=== PATIENT | female | born 1940 | race Caucasian/White ===

== ENCOUNTER 2017-10-29 11:00 | Day surgery (SDC) | payer MEDICARE, OTHER ==
[~2017-10-29] VITALS: Ht 162.6 cm; Wt 100.0 kg
[2017-10-29] MEDS ORDERED: ZANTAC 150150 MG PO (11:48)
[2017-10-29] MEDS ORDERED: ZOCOR 20MG20 MG PO (11:48)
[2017-10-29] MEDS ORDERED: LOPRESSOR 550 MG/TAB PO (11:49)
[2017-10-29] MEDS ORDERED: ELIQUIS 5MG PO (11:49)
[2017-10-29] MEDS ORDERED: D3-5050000 IU PO (11:51)
[2017-10-29] MEDS ORDERED: MYCOSTATIN100000 U/1 TP (11:51)
[2017-10-29] MEDS ORDERED: ASPIRIN E.C. 8181 MG PO (11:52)
[2017-10-29] MEDS ORDERED: PROAIR HFA0.09 MG/AC IH (11:52)
[2017-10-29] MEDS ORDERED: FLOVENT 220MCG7.9 GM IH (11:53)
[2017-10-29] MEDS ORDERED: VALTREX 50500 MG/TAB PO (11:54)
[2017-10-29] MEDS ORDERED: ULTRAM 50MG TAB50 MG PO (11:54)
[2017-10-29] MEDS ORDERED: VOLTAREN GEL 1%1 TU TP (11:54)
[2017-10-29] MEDS ORDERED: GAVISCON F1 TAB.CHEW PO (11:55)
[2017-10-29 12:11] VITALS: BP 133/77; PULSE 61; TEMP 98.3
[2017-10-29 12:11] LABS: POTASSIUM 4.2 mmol/L (3.4-5.0)
[2017-10-29 12:12] LABS: INR 1.8 (0.8-3.0)
[2017-10-29 12:45] LABS: THYROID STIMULATING HORMONE 2.68 uIU/mL (0.465-4.680)
== END 2017-10-29 14:15 | disposition home or self-care (01) ==
LOC: COL.CAR 11:00
PROVIDERS: Internal Medicine Interventional Cardiology
DX: I48.0 Paroxysmal atrial fibrillation (principal); Z53.8 Procedure and treatment not carried out for other reasons; I10 Essential (primary) hypertension; Z86.73 Personal history of transient ischemic attack (TIA), and cerebral infarction without residual deficits; Z79.01 Long term (current) use of anticoagulants; Z79.82 Long term (current) use of aspirin; Z88.5 Allergy status to narcotic agent; Z88.0 Allergy status to penicillin; Z91.040 Latex allergy status; Z87.19 Personal history of other diseases of the digestive system

== ENCOUNTER 2018-04-11 11:50 | Day surgery (SDC) | payer MEDICARE, OTHER ==
[~2018-04-11] VITALS: Ht 162.7 cm; Wt 102.4 kg
[2018-04-11] VITALS (12 sets, daily range): BP systolic 135–162; BP diastolic 72–96; PULSE 56–62; TEMP 97.9
[~2018-04-11 11:50] MED LIST: ASPIRIN E.C. 8181 MG PO; D3-5050000 IU PO; ELIQUIS 5MG PO; FLOVENT 220MCG7.9 GM IH; GAVISCON F1 TAB.CHEW PO; LOPRESSOR 550 MG/TAB PO; MYCOSTATIN100000 U/1 TP; PROAIR HFA0.09 MG/AC IH; ULTRAM 50MG TAB50 MG PO; VALTREX 50500 MG/TAB PO; VOLTAREN GEL 1%1 TU TP; ZANTAC 150150 MG PO; ZOCOR 20MG20 MG PO
[2018-04-11 12:17] LABS: HEMATOCRIT 47.7 % (37.0-47.0); HEMOGLOBIN 15.7 g/dl (12.5-16.0); MEAN CELL VOLUME 88 fl (80.0-100.0); MEAN CORPUSCULAR HEMOGLOBIN 29 pg (27.0-31.0); MEAN CORPUSCULAR HGB CONC 33 g/dl (33.0-37.0); MEAN PLATELET VOLUME 10.2 fl (7.4-10.4); PLATELET COUNT 359 K/mm3 (130-400); RED BLOOD COUNT 5.42 M/mm3 (4.10-5.30); REDCELL DISTRIBUTION WIDTH-CV 13.9 % (11.5-14.5)
[2018-04-11 12:23] LABS: INR 1.1 (0.8-3.0); PROTHROMBIN TIME 12.7 SECONDS (9.7-12.8)
[2018-04-11 13:11] LABS: CALCIUM 9.3 mg/dL (8.4-10.2); CREATININE, serum 0.87 mg/dL (0.52-1.25)
== END 2018-04-11 16:50 | disposition home or self-care (01) ==
LOC: COL.CAR 11:50
PROVIDERS: Internal Medicine Cardiovascular Disease
DX: I25.10 Atherosclerotic heart disease of native coronary artery without angina pectoris (principal); I48.0 Paroxysmal atrial fibrillation; I47.1 Supraventricular tachycardia; R00.2 Palpitations; I10 Essential (primary) hypertension; R60.0 Localized edema; R53.83 Other fatigue; Z79.01 Long term (current) use of anticoagulants; Z79.82 Long term (current) use of aspirin; Z88.0 Allergy status to penicillin; Z88.5 Allergy status to narcotic agent; Z91.040 Latex allergy status; Z86.73 Personal history of transient ischemic attack (TIA), and cerebral infarction without residual deficits; Z82.49 Family history of ischemic heart disease and other diseases of the circulatory system; Z83.3 Family history of diabetes mellitus
CPT/HCPCS: C1769; C1887; C1894; J1644; J2250; J3010; Q9967

== ENCOUNTER 2022-05-01 12:22 | Day surgery (SDC) | payer MEDICARE, OTHER ==
[~2022-05-01] VITALS: Ht 162.8 cm; Wt 93.9 kg
[2022-05-01] MEDS ORDERED: NORVASC 5MG5 MG/TAB PO (13:06)
[2022-05-01] MEDS ORDERED: SYNTHROID0.05 MG/TA PO (13:08)
[2022-05-01] MEDS ORDERED: FERRO-TIME325 MG PO (13:10)
[2022-05-01] MEDS ORDERED: FARXIGA10 PO (13:10)
[2022-05-01] MEDS ORDERED: VITAMIN C500 MG PO (13:11)
[2022-05-01] MEDS ORDERED: FOLIC ACID0.4 MG PO (13:15)
[2022-05-01] MEDS ORDERED: VITAMIN D250 MCG PO (13:16)
[2022-05-01 13:22] VITALS: BP 108/78; PULSE 100; TEMP 98
[2022-05-01 13:44] LABS: POTASSIUM 3.7 mmol/L (3.5-4.5)
[2022-05-01 13:55] LABS: INR 3.1 (0.8-3.0); PROTHROMBIN TIME 35.7 SECONDS (9.7-12.8)
--- NOTE | 2022-05-01 14:03 | NUR ---
REPORT GIVEN TO EVGENY DANIELS.
--- NOTE | 2022-05-01 14:03 | NUR ---
REPORT GIVEN TO EVGENY DANIELS.
[2022-05-01 14:11] LABS: THYROID STIMULATING HORMONE 1.28 uIU/mL (0.350-4.940)
[2022-05-01 15:45] VITALS: BP 106/66; PULSE 83
[2022-05-01 16:00] VITALS: BP 108/70; PULSE 86
[2022-05-01 16:15] VITALS: BP 107/70; PULSE 83
[2022-05-01 16:30] VITALS: BP 100/65; PULSE 71
[2022-05-01 16:45] VITALS: BP 116/70; PULSE 80
--- NOTE | 2022-05-01 16:56 | NUR ---
Pt ready for departure at this time. Pt did well during her recovery. Pt remained in sr with occasional PACs during her recovery. We have reviewed dc/fu instructions and she does not have any questions or concerns. PT has been up and is steady on her feet. I escorted her to exit via wheelchair.
== END 2022-05-01 17:48 | disposition home or self-care (01) ==
LOC: COL.CAR 12:22
PROVIDERS: Internal Medicine Interventional Cardiology
DX: I48.19 Other persistent atrial fibrillation (principal); I11.0 Hypertensive heart disease with heart failure; I50.30 Unspecified diastolic (congestive) heart failure; I34.0 Nonrheumatic mitral (valve) insufficiency; M40.209 Unspecified kyphosis, site unspecified; G47.33 Obstructive sleep apnea (adult) (pediatric); Z79.01 Long term (current) use of anticoagulants; Z95.0 Presence of cardiac pacemaker
CPT/HCPCS: J2704; J7030